=== PATIENT | female | born 1990 | race Caucasian/White ===

== ENCOUNTER 2020-06-14 14:42 | Emergency (ER) | payer BC ==
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
[2020-06-14] MEDS ORDERED: Ibuprofen 600 MG Tab PO ONE (15:11)
[2020-06-14] MEDS ORDERED: Acetaminophen 500 MG Tab PO ONE (15:11)
--- NOTE | 2020-06-14 16:11 | CR ---
Indication: Fall, injury Comparison: None available. Technique: AP, Lateral, and Oblique views right elbow were obtained Findings: There is a nondisplaced fracture of the radial head. No other large displaced injuries are appreciated. The joint spaces are grossly preserved. There is a large elbow joint effusion. Impression: Nondisplaced fracture of the radial head with moderate elbow joint effusion. Dictated by Mahamed Allen MD @ Jun 14 2020 4:09PM Signed by Dr. Mahamed Allen @ Jun 14 2020 4:10PM
--- NOTE | 2020-06-14 16:11 | CR ---
Indication: Fall, injury Comparison: None available. Technique: AP, Lateral, and Oblique views right wrist were obtained Findings: There is no displaced fracture or dislocation. The joint spaces are grossly preserved. There is mild superficial soft tissue swelling. Impression: Mild superficial soft tissue swelling without evidence of displaced fracture. Dictated by Mahamed Allen MD @ Jun 14 2020 4:08PM Signed by Dr. Mahamed Allen @ Jun 14 2020 4:09PM
== END 2020-06-14 16:34 | disposition home or self-care (01) ==
LOC: MW.ED 14:42
DX: S52.124A Nondisplaced fracture of head of right radius, initial encounter for closed fracture (principal); W19.XXXA Unspecified fall, initial encounter; Y99.0 Civilian activity done for income or pay
CPT/HCPCS: 73080; 73110; 99283; A9270; 99282

== ENCOUNTER 2020-08-19 16:13 | Emergency (ER) | payer BC ==
[2020-08-19] MEDS ORDERED: Tetracaine HCl/PF 0.5% 4 ML Bottle EYERT ONE (17:20)
--- NOTE | 2020-08-19 18:20 | EDM.PDOC ---
ED HPI GENERAL MEDICAL PROBLEM - General Chief Complaint: ENT Problem Stated Complaint: RIGHT EYE PAIN Time Seen by Provider: 08/19/20 17:05 Source of Information: Reports: Patient History Limitations: Reports: No Limitations - History of Present Illness INITIAL COMMENTS - FREE TEXT/NARRATIVE: HISTORY AND PHYSICAL: History of present illness: Patient is a 30-year-old female who presents to the ED today with concern of right eye pain that started last night in the middle of the night. Patient states that she does wear contacts and has been known to sleep with them frequently at night. Patient states that she fell asleep with her contacts and last night and woke up in the middle of the night with right eye pain. Patient states that she took her contacts out immediately and has not been wearing them since. Patient states throughout the day her right eye has been red and watering and painful. Patient denies any change in vision. Patient denies any trauma or injury or any other associative symptoms. Patient denies fever, chills, chest pain, shortness of breath, or cough. Denies headache, neck stiff ness, change in vision, syncope, or near syncope. Denies nausea, vomiting, abdominal pain, diarrhea, constipation, or dysuria. Has not noted any blood in urine or stool. Patient has been eating and drinking appropriately. Review of systems: As per history of present illness and below otherwise all systems reviewed and negative. Past medical history: As per history of present illness and as reviewed below otherwise noncontributory. Surgical history: As per history of present illness and as reviewed below otherwise noncontributory. Social history: See social history for further information Family history: As per history of present illness and as reviewed below otherwise noncontributory. Physical exam: General: Patient is alert, oriented, and in no acute distress. Patient sitting comfortably on exam table. HEENT: Visual acuity intact. EOMS intact without pain or difficulty. Fluroscene stain performed with concern for a corneal ulceration in the central cornea. Bilateral upper and lower lids everted without sign of foreign body. Negative f or corneal opacity, hyphema, or hypopyon. Otherwise, atraumatic, normocephalic, pupils equal and reactive bilaterally, negative for conjunctival pallor or scleral icterus, mucous membranes moist, TMs normal bilaterally, throat clear, neck supple, nontender, trachea midline. No drooling or trismus noted. No meningeal signs. No hot potato voice noted. Lungs: Clear to auscultation, breath sounds equal bilaterally, chest nontender. Heart: S1S2, regular rate and rhythm without overt murmur Abdomen: Soft, nondistended, nontender. Negative for masses or hepatosplenomegaly. Negative for costovertebral tenderness. Pelvis: Stable nontender. Genitourinary: Deferred. Rectal: Deferred. Skin: Intact, warm, dry. No lesions or rashes noted. Extremities: Atraumatic, negative for cords or calf pain. Neurovascular unremarkable. Neuro: Awake, alert, oriented. Cranial nerves II through XII unremarkable. Cerebellum unremarkable. Motor and sensory unremarkable throughout. Exam nonfocal. Notes: On exam, patient is alert, and in no acute distress and vitally stable. She does have a corneal ulceration of her right central cornea on exam and is a contact lens wearer. I did call and speak to the pattern storage clerk on-call, Dr. Chaidez, who would like patient to be started on Ocuflox eyedrops every 1 hour while awake and every 2 hours while asleep. He would like patient to be seen tomorrow and if she is unable to get in with her eye doctor, he will see patient tomorrow in his clinic. At this time, all pharmacies are closed and our facility pharmacy does not have Ocuflox drops, however, we do have Vigamox eyedrops. Patient has been discharged from the ED with Vigamox eyedrops with strict return precautions. Discussed not putting her contacts back in until she is cleared by the eye doctor to do so. Discussed importance for evaluation tomorrow with her eye doctor provider or Dr. Chaidez, ophthalmology if she is not able to be seen by her eye doctor. Voices understanding and is agreeable to plan of care. Denies any further questions or concerns at this time. Diagnostics: Fluorescence sanchez lamp Therapeutics: Vigamox, Tetracaine Prescription: Vigamox Impression: Corneal ulceration, right eye Plan: 1. Apply antibiotic eyedrop 1 drop to the eye every hour while awake. Make sure to set an alarm and apply the eyedrops every 2 hours while you are sleeping to affected eye. 2. Follow-up with your eye doctor tomorrow as discussed. If you are unable to be seen tomorrow, Dr. Chaidez, ophthalmology, will see you tomorrow. The number for Dr. Chaidez's clinic has been provided above for you to call and establish an appointment time. 3. You can alternate ibuprofen and Tylenol as directed for pain and discomfort. Follow-up with the neurologist as discussed. Return to the ED as needed and as discussed. Do not wear your contacts until you are cleared by Dr. Chaidez. Definitive disposition and diagnosis as appropriate pending reevaluation and review of above. right eye Pain Score (Numeric/FACES): 8 - Related Data Allergies Allergy/AdvReac Type Severity Reaction Status Date / Time No Known Allergies Allergy Verified 08/19/20 17:10 Home Meds: Home Meds Ibuprofen [Motrin] 600 mg PO Q6H PRN #28 tab 06/14/20 [Rx] Past Medical History - Past Health History Medical/Surgical History: Denies Medical/Surgical History - Infectious Disease History Infectious Disease History: Reports: Chicken Pox - Past Surgical History HEENT Surgical History: Reports: Naso-Sinus Surgery ED ROS GENERAL - Review of Systems Review Of Systems: Comprehensive ROS is negative, except as noted in HPI. ED EXAM, GENERAL - Physical Exam Exam: See Below (see dictation) Course - Vital Signs Last Recorded V/S: Last Vital Signs Temp 97.0 F 08/19/20 17:10 Pulse 99 08/19/20 17:10 Resp 18 08/19/20 17:10 BP 133/86 08/19/20 17:10 Pulse Ox 98 08/19/20 17:10 - Orders/Labs/Meds Meds: Medications Discontinued Medications Generic Name Dose Route Start Last Admin Trade Name Daiana PRN Reason Stop Dose Admin Moxifloxacin HCl 1 ml 08/19/20 18:39 Moxifloxacin 0.5% Ophth Soln 3 Ml Bottle EYERT 08/19/20 18:40 NOW STA Tetracaine HCl 1 ml 08/19/20 17:20 08/19/20 17:23 Tetracaine Hcl/Pf 0.5% 4 Ml Bottle EYERT 08/19/20 17:21 1 ml ASDIRECTED ONE Administration Departure - Departure Time of Disposition: 18:17 Disposition: Home, Self-Care 01 Clinical Impression: Corneal ulcer of right eye - Discharge Information Instructions: Corneal Ulcer Referrals: PCP,None [Primary Care Provider] - Forms: ED Department Discharge Additional Instructions: The following information is given to patients seen in the emergency department who are being discharged to home. This information is to outline your options for follow-up care. We provide all patients seen in our emergency department with a follow-up referral. The need for follow-up, as well as the timing and circumstances, are variable depending upon the specifics of your emergency department visit. If you don't have a primary care physician on staff, we will provide you with a referral. We always advise you to contact your personal physician following an emergency department visit to inform them of the circumstance of the visit and for follow-up with them and/or the need for any referrals to a consulting specialist. The emergency department will also refer you to a specialist when appropriate. This referral assures that you have the opportunity for follow-up care with a specialist. All of these measure are taken in an effort to provide you with optimal care, which includes your follow-up. Under all circumstances we always encourage you to contact your private physician who remains a resource for coordinating your care. When calling for follow-up care, please make the office aware that this follow-up is from your recent emergency room visit. If for any reason you are refused follow-up, please contact the [facility] Emergency Department at and asked to speak to the emergency department charge nurse. [facility], Dr. Chaidez, Ophthalmology [address] [place] [address] 1. Apply antibiotic eyedrop 1 drop to the eye every hour while awake. Make sure to set an alarm and apply the eyedrops every 2 hours while you are sleeping to affected eye. 2. Follow-up with your eye doctor tomorrow as discussed. If you are unable to be seen tomorrow, Dr. Chaidez, ophthalmology, will see you tomorrow. The number for Dr. Chaidez's clinic has been provided above for you to call and establish an appointment time. 3. You can alternate ibuprofen and Tylenol as directed for pain and discomfort. Follow-up with the neurologist as discussed. Return to the ED as needed and as discussed. Do not wear your contacts until you are cleared by Dr. Chaidez. Sepsis Event Note (ED) - Evaluation Sepsis Screening Result: No Definite Risk - Focused Exam Vital Signs: Vital Signs Temp Pulse Resp BP Pulse Ox 08/19/20 17:10 97.0 F 99 18 133/86 98
[2020-08-19] MEDS ORDERED: Moxifloxacin 0.5% Ophth Soln 3 ML Bottle EYERT STA (18:39)
[2020-08-19] MEDS ORDERED: Moxifloxacin 0.5% Ophth Soln 3 ML Bottle EYERT ONE (18:58)
== END 2020-08-19 19:03 | disposition home or self-care (01) ==
LOC: MW.ED 16:13
DX: H16.001 Unspecified corneal ulcer, right eye (principal)
CPT/HCPCS: 99283; A9270